=== PATIENT | female | born 1970 | race Caucasian/White ===

== ENCOUNTER → 2021-02-20 | Outpatient (CLI) | payer BC ==
[~2021-02-20] MED LIST: ATIVAN1 MG PO; MAXIDE; MOBIC15 MG PO; NORVASC10 MG PO; PRAVACHOL40 MG PO; PROPRANOLOL 4040 MG; SYNTHROID100 MCG PO; TAMIFLU45 MG PO; TUSSIONEX PENN473 ML PO; VENTOLIN HFA INH8 GM IH; WELLBUTRIN XL150 M2 PO; XANAX XR0.5 MG PO; ZOLOFT 50 MG TA50 MG PO; ZPAK PO; [UNRECOGNIZED DRUG - OTHER]
== END ==
LOC: M.CT 07:37
PROVIDERS: ATTEND Registered Nurse Diabetes Educator
DX: N20.0 Calculus of kidney (principal)

== ENCOUNTER 2021-03-07 09:00 | Emergency (ER) | payer BC ==
[~2021-03-07] VITALS: Ht 157.5 cm; Wt 61.2 kg
[2021-03-07] MEDS ORDERED: REMERON15 M2 PO (09:18)
[2021-03-07] MEDS ORDERED: NEURONTIN 400M400 M2 PO (09:18)
[2021-03-07] MEDS ORDERED: ABILIFY MYCITE2 MG PO (09:19)
[2021-03-07] MEDS ORDERED: COZAAR 50 MG TA50 MG PO (09:19)
[2021-03-07] MEDS ORDERED: LEXAPRO20 MG PO (09:19)
[2021-03-07] MEDS ORDERED: PLAQUENIL200 MG PO (09:20)
[2021-03-07] MEDS ORDERED: HYDROCODON-ACE1 EAC7 PO (09:37)
[2021-03-07 10:13] VITALS: BP 144/65
== END 2021-03-07 10:18 | disposition home or self-care (01) ==
LOC: M.ERS 09:00
DX: S90.212A Contusion of left great toe with damage to nail, initial encounter (principal); M32.9 Systemic lupus erythematosus, unspecified; I10 Essential (primary) hypertension; Z88.5 Allergy status to narcotic agent; Z88.2 Allergy status to sulfonamides; Z88.1 Allergy status to other antibiotic agents; Z79.899 Other long term (current) drug therapy; X58.XXXA Exposure to other specified factors, initial encounter; Y93.89 Activity, other specified; Y92.89 Other specified places as the place of occurrence of the external cause; Y99.9 Unspecified external cause status

== ENCOUNTER → 2021-03-10 | Outpatient (CLI) | payer BC ==
[~2021-03-10] MED LIST changes: +ABILIFY MYCITE2 MG PO; +COZAAR 50 MG TA50 MG PO; +HYDROCODON-ACE1 EAC7 PO; +LEXAPRO20 MG PO; +NEURONTIN 400M400 M2 PO; +PLAQUENIL200 MG PO; +REMERON15 M2 PO
== END ==
LOC: M.RAD 03-09 07:03
PROVIDERS: ATTEND Registered Nurse Diabetes Educator
DX: M41.85 Other forms of scoliosis, thoracolumbar region (principal)

== ENCOUNTER → 2021-03-18 | Outpatient (CLI) | payer BC | LOC: M.MRI 07:15 | PROVIDERS: ATTEND Registered Nurse Diabetes Educator | DX: G96.191 Perineural cyst (principal); M54.9 Dorsalgia, unspecified ==